=== PATIENT | female | born 1960 | race Two or more races ===

== ENCOUNTER 2016-07-15 12:36 | Emergency (ER) | payer OTHER ==
[2016-07-15] MEDS ORDERED: ONDANSETRON 4 MG/2ML 2 ML VIAL ONE (13:33)
[2016-07-15] MEDS ORDERED: SODIUM CHLORIDE 0.9% 1,000 ML ONE (13:33)
[2016-07-15] MEDS ORDERED: METHYLPRED SOD SUCCINATE 125 MG VIAL ONE (13:34)
[2016-07-15] MEDS ORDERED: MECLIZINE HCL 25 MG TABLET ONE (13:34)
== END 2016-07-15 15:15 | disposition home or self-care (01) ==
LOC: ED 12:36
DX: R42 Dizziness and giddiness (principal); R11.10 Vomiting, unspecified
CPT/HCPCS: 96375; 99283 ×2; 96374; 96361; A9270; J2930; J2405; J7030